=== PATIENT | male | born 1965 | race Caucasian/White ===

== ENCOUNTER 2018-09-17 07:15 | Day surgery (SDC) | payer BC ==
[~2018-09-17] VITALS: Ht 172.7 cm; Wt 83.6 kg
[~2018-09-17 07:15] MED LIST: ARIP10 PO; ASPI81CH PO; ATOR40TA PO; Augmentin 875-1 EACH PO; BUPR150ER PO; BUTALB-ACETAMI1 EACH PO; Budeprion Xl300 MG; Budeprion Xl300 MG PO; CITALOPRAM PO; FLUVIRIN 245 MCG/0.8 IM; Fluoxetine HCl20 M1 PO; GABA300 PO; HYDACE10B PO; HYDHCL25 PO; Humalog100 UNIT/1; Humalog100 UNIT/1 SC; INS70/30PN SC; INSULIN PUMP; LEVEMIR FL100 UNIT/1 SC; LISI5 PO; METO10 PO; METO25ER PO; Omeprazole20 M1; One Touch Ultr1 EACH IN; PANT40 PO; PREG25; Percocet 5-3251 EACH PO; TRAZ50 PO; VITAMIN D5000 UNIT PO; ZOLP10 PO; [UNRECOGNIZED DRUG - OTHER] MC
--- NOTE | 2018-09-17 11:02 | NUR ---
SUMMARY: PT HAD UNCOMPLICATED COURSE IN RECOVERY STATUS POST ANGIO. TOLERATING SOLID FOODS. NO PAIN OR DISCOMFORT. NO EPISODES OF BLEEDING OR SWELLING TO RIGHT HAND. CMS REMAINED INTACT TO HAND WITH BRISK CAP REFILL. TR BAND DEFLATED PER POLICY - PT TOLERATED WELL. REVIEWED DISCHARGE INSTRUCTIONS WITH PATIENT WHO VERBALIZED UNDERSTANDING OF ALL AND IS ABLE TO REPEAT BACK PERTINENT POINTS OF INSTRUCTIONS. IV D/C TIP INTACT. FAMILY HERE TO DRIVE PATIENT HOME.
== END 2018-09-17 11:15 | disposition home or self-care (01) ==
LOC: MHTC 07:15 → ORSCMMR 07:19 → MHTC 11:15
DX: I25.10 Atherosclerotic heart disease of native coronary artery without angina pectoris (principal); E10.9 Type 1 diabetes mellitus without complications; I10 Essential (primary) hypertension; F32.9 Major depressive disorder, single episode, unspecified; F41.9 Anxiety disorder, unspecified; F17.210 Nicotine dependence, cigarettes, uncomplicated; Z79.899 Other long term (current) drug therapy; Z79.82 Long term (current) use of aspirin; Z88.8 Allergy status to other drugs, medicaments and biological substances
CPT/HCPCS: 93454; 99152; C1769; C1894; J1644; J2250; J3010; J7030; Q9967

== ENCOUNTER 2019-06-07 08:45 | Day surgery (SDC) | payer BC ==
[~2019-06-07] VITALS: Ht 175.3 cm; Wt 83.3 kg
[~2019-06-07 08:45] MED LIST changes: +GABAPENTIN600 MG PO
== END 2019-06-07 10:16 | disposition home or self-care (01) ==
LOC: ORSCSDS 08:45
PROVIDERS: Internal Medicine Gastroenterology
PROC: 0DBH8ZX Excision of Cecum, Via Natural or Artificial Opening Endoscopic, Diagnostic (ICD-10-PCS; principal; 2019-06-07 10:00)
PROC: 0DBM8ZX Excision of Descending Colon, Via Natural or Artificial Opening Endoscopic, Diagnostic (ICD-10-PCS; principal; 2019-06-07 10:00)
DX: Z12.11 Encounter for screening for malignant neoplasm of colon (principal); D12.0 Benign neoplasm of cecum; D12.4 Benign neoplasm of descending colon; F41.8 Other specified anxiety disorders; E10.8 Type 1 diabetes mellitus with unspecified complications; Z96.41 Presence of insulin pump (external) (internal); F17.210 Nicotine dependence, cigarettes, uncomplicated; Z79.82 Long term (current) use of aspirin; Z79.4 Long term (current) use of insulin; Z79.899 Other long term (current) drug therapy
CPT/HCPCS: 82947; 88305; J2704; J7120

== ENCOUNTER 2021-05-30 11:45 | Day surgery (SDC) | payer BC ==
[~2021-05-30] VITALS: Ht 175.3 cm; Wt 92.6 kg
== END 2021-05-30 14:06 | disposition home or self-care (01) ==
LOC: ORSCSDS 11:45
PROVIDERS: Student in an Organized Health Care Education/Training Program
PROC: 0DB48ZX Excision of Esophagogastric Junction, Via Natural or Artificial Opening Endoscopic, Diagnostic (ICD-10-PCS; principal; 2021-05-30 13:00)
PROC: 0DB98ZX Excision of Duodenum, Via Natural or Artificial Opening Endoscopic, Diagnostic (ICD-10-PCS; principal; 2021-05-30 13:00)
DX: K76.0 Fatty (change of) liver, not elsewhere classified (principal); K90.0 Celiac disease; I10 Essential (primary) hypertension; E10.8 Type 1 diabetes mellitus with unspecified complications; Z96.41 Presence of insulin pump (external) (internal); D64.9 Anemia, unspecified; F41.8 Other specified anxiety disorders; Z87.891 Personal history of nicotine dependence; Z79.82 Long term (current) use of aspirin; Z79.4 Long term (current) use of insulin; Z79.899 Other long term (current) drug therapy
CPT/HCPCS: 82947; 88305; J0461; J2405; J2704; J7120

== ENCOUNTER 2022-07-09 17:07 | Inpatient (IN) | payer BC ==
[~2022-07-09] VITALS: Ht 172.7 cm; Wt 93.4 kg
[~2022-07-09 17:07] MED LIST changes: -ACET325 PO; -AZIT250 PO; -CEFP200 PO; -TAMIFLU7511 PO; -VISBIOME 112.51 EACH PO; -Ventolin/Prove6.7 GM INH
[2022-07-09] MEDS ORDERED: Ventolin/Prove6.7 GM INH (23:17)
[2022-07-09] MEDS ORDERED: TAMIFLU7511 PO (23:17)
[2022-07-10 01:26] LABS: Hemoglobin 12.8 g/dL (13.5-17.5); Mean Corpuscular HGB 29.8 pg (26.0-34.0); Mean Corpuscular HGB Conc 33.7 g/dL (31.5-36.5); Mean Corpuscular Volume 88 fL (80-100); Mean Platelet Volume 10.5 fL (9.1-12.4); Platelet Count 278 K/mm3 (150-400); RDW Coefficient Variation 13.1 % (11.7-14.2); RDW Standard Deviation 42.3 fL (35.1-46.3); White Blood Cell Count 16.81 K/mm3 (4.00-11.30)
[2022-07-10 02:04] LABS: BAND PERCENT MAN 27 % (0-8); BASOPHILS ABSOLUTE MAN 0.16 K/mm3 (0.00-0.23); BASOPHILS PERCENT MAN 1 % (0-2); EOSINOPHILS PERCENT MAN 0 % (0-6); LYMPHOCYTES ABSOLUTE MAN 1.17 K/mm3 (0.84-5.20); LYMPHOCYTES PERCENT MAN 7 % (21-46); METAMYELOCYTE PERCENT MAN 3 % (0-0); MONOCYTES ABSOLUTE MAN 1.51 K/mm3 (0.16-1.47); MONOCYTES PERCENT MAN 9 % (4-13); NEUTROPHILS ABSOLUTE MAN 13.44 K/mm3 (1.96-9.15); SEG NEUTROPHILS PERCENT MAN 53 % (41-73); TOTAL CELLS COUNTED 100
[2022-07-10 02:52] LABS: Albumin, Blood 2.4 g/dL (3.4-5.0); Albumin/Globulin Ratio 0.7 (0.8-1.8); Bilirubin, Total 0.5 mg/dL (0.1-1.0); Bun/Creatinine Ratio 18.2 (12.0-20.0); Calcium, Blood 7.9 mg/dL (8.5-10.1); Creatinine, Blood 1.43 mg/dL (0.60-1.20); Globulin, Blood 3.5 g/dL (2.2-4.0); Potassium, Blood 4.4 mmol/L (3.5-5.5); Total Protein, Blood 5.9 g/dL (6.4-8.2)
--- NOTE | 2022-07-10 03:18 | NUR ---
SHIFT SUMMARY NOC ADMIT FROM ED FOR SEPSIS SECONDARY FROM LLL PNA. PT IS A/O X 4. INDEPENDENT IN ROOM ON RA WITH PRN O2 WHEN FEELING SOB. PT HAD ONE EPISODE OF ANXIETY ATTACK AND HAD SOB. 1L/NC O2 WAS APPLIED WELL ONE TIME DOSE OF ATIVAN WHICH RELIEVED PT ANXIETY AND SOB. PT IS ON TELE RUNNING SINUS TACH @ 105. PT HAS INSULIN PUMP LLQ THAT IS NOT GOING TO BE USED WHILE ADMITTED TO HOSPITAL. AC/HS CBG MONITORING AND HUMALOG INSULIN COVERAGE ARE IN PLACE. PT IS TAKING ROCEPHIN AND AZITHROMYCIN FOR PNA. PT HAD LACTIC ACID OF 2.9 PRIOR TO COMING FROM ED. AWAITING AM LABS. PT IS CURRENTLY RESTING WITH BED IN LOWEST POSITION, AND CALL LIGHT WITHIN REACH. WCTM.
--- NOTE | 2022-07-10 16:18 | NUR ---
PT AAOX4. CALM AND APPROPRIATE AFTER HIS INSULIN WAS INCREASED PER HIS REQUEST. PT DID STATE, "YOU GUYS ARE GOING TO KILL ME" WHEN HIS BG WAS 412 FOR LUNCH. CALLS APPROPRIATELY. INDEPENDENT IN ROOM. STEADY ON HIS FEET.
--- NOTE | 2022-07-10 22:16 | NUR ---
RN NOTE--HS BLOOD SUGAR 317.
--- NOTE | 2022-07-11 04:02 | NUR ---
NURSE NOTE--PHYSICIAN CONTACT CRITICAL LAB CHARGE NURSE NOTIFIED OF GRAM POSITVE BLOOD CULTURES IN ONE SAMPLE; PER LAB IF THE GRAM POS IS VALID AND NOT CONTAMINATION, CURRENT ABOX FOR PT WILL NOT COVER BACTERIA. THIS RN CALLED BREAKER BOSS/DR QUINTEROS TO NOTIFY OF RESULTS. NO NEW ORDER AT THIS TIME. WILL PASS INFO ON TO DAY SHIFT.
--- NOTE | 2022-07-11 06:30 | NUR ---
UKE DRIVER SUMMARY CRITICAL LAB F/GRAM POS BLOOD CULTURE; SEE NURSE NOTE. PT C/O HEADACHE THAT IS WORSENING; MED W/TYLENOL PER EMAR. NO ACUTE EVENTS OVER NIGHT. PT ABLE TO MAKE NEEDS KNOWN. CALL LIGHT ACCESSIBLE.
[2022-07-11 09:59] LABS: BASOPHILS ABSOLUTE AUTO 0.07 K/mm3 (0.00-0.23); BASOPHILS PERCENT AUTO 0 % (0-2); EOSINOPHILS ABSOLUTE AUTO 0.42 K/mm3 (0.00-0.68); EOSINOPHILS PERCENT AUTO 3 % (0-6); Hemoglobin 12.5 g/dL (13.5-17.5); IMMATURE GRAN ABSOLUTE AUTO 0.17 K/mm3 (0.00-0.10); IMMATURE GRAN PERCENT AUTO 1 % (0-1); LYMPHOCYTES ABSOLUTE AUTO 2.19 K/mm3 (0.84-5.20); LYMPHOCYTES PERCENT AUTO 14 % (21-46); MONOCYTES ABSOLUTE AUTO 1.13 K/mm3 (0.16-1.47); MONOCYTES PERCENT AUTO 7 % (4-13); Mean Corpuscular HGB 29.9 pg (26.0-34.0); Mean Corpuscular HGB Conc 34.7 g/dL (31.5-36.5); Mean Corpuscular Volume 86 fL (80-100); Mean Platelet Volume 11.3 fL (9.1-12.4); NEUTROPHILS ABSOLUTE AUTO 11.71 K/mm3 (1.96-9.15); NEUTROPHILS PERCENT AUTO 75 % (41-73); Platelet Count 227 K/mm3 (150-400); RDW Standard Deviation 41.2 fL (35.1-46.3); Red Blood Cell Count 4.18 M/mm3 (4.30-5.90); White Blood Cell Count 15.69 K/mm3 (4.00-11.30)
[2022-07-11 10:45] LABS: Bun/Creatinine Ratio 23.3 (12.0-20.0); Calcium, Blood 8.5 mg/dL (8.5-10.1); Creatinine, Blood 1.03 mg/dL (0.60-1.20); Potassium, Blood 4.1 mmol/L (3.5-5.5)
[2022-07-11] MEDS ORDERED: ACET325 PO (15:02)
[2022-07-11] MEDS ORDERED: VISBIOME 112.51 EACH PO (15:03)
[2022-07-11] MEDS ORDERED: AZIT250 PO (15:04)
[2022-07-11] MEDS ORDERED: CEFP200 PO (15:05)
--- NOTE | 2022-07-11 19:57 | NUR ---
SHIFT SUMMARY PTN D/C'D AT 1715 WITH WC ESCORT BY KOREY ARORA TO EXIT WHERE PTN HAD OWN VEHICLE TO DRIVE HOME. NO UNTOWARD EVENTS THIS SHIFT. BLOOD SUGARS 209 AND 331 LUNCH AND DINNER, AND COVERED VIA EMAR. TELEMETRY STRIP SHOWED SINUS RHYTHM WITH HR 78. D/C PAPERWORK REVIEWED WITH THE PTN PRIOR TO D/C.
== END 2022-07-11 17:04 | disposition home or self-care (01) | DRG 871 ==
LOC: ER 17:07 → MEDS 17:08
PROVIDERS: Internal Medicine; ADMIT Internal Medicine
DX: A41.50 Gram-negative sepsis, unspecified (principal); G93.41 Metabolic encephalopathy; J15.6 Pneumonia due to other Gram-negative bacteria; E87.20 Acidosis, unspecified; J20.9 Acute bronchitis, unspecified; R65.20 Severe sepsis without septic shock; F32.A Depression, unspecified; I10 Essential (primary) hypertension; E10.65 Type 1 diabetes mellitus with hyperglycemia; G56.00 Carpal tunnel syndrome, unspecified upper limb; F17.210 Nicotine dependence, cigarettes, uncomplicated; N28.9 Disorder of kidney and ureter, unspecified; B96.20 Unspecified Escherichia coli [E. coli] as the cause of diseases classified elsewhere; Z96.611 Presence of right artificial shoulder joint; Z96.651 Presence of right artificial knee joint; Z96.612 Presence of left artificial shoulder joint; Z88.8 Allergy status to other drugs, medicaments and biological substances; Z79.4 Long term (current) use of insulin; Z23 Encounter for immunization; Z79.811 Long term (current) use of aromatase inhibitors; Z79.82 Long term (current) use of aspirin; Z79.02 Long term (current) use of antithrombotics/antiplatelets; Z79.899 Other long term (current) drug therapy; Z98.890 Other specified postprocedural states; Z79.51 Long term (current) use of inhaled steroids
CPT/HCPCS: 36415; 80048; 80053; 82947; 83605; 83880; 85025; 87040; 87070; 87077; 87186; 87205; 90686; 93005; 93010; 96361; 96365; 96366; 96372; 96375; 99285-25; A9270; G0008; G0378; J0456; J0696; J1650; J1815; J7030; J7050

== ENCOUNTER → 2022-07-09 | Outpatient (CLI) | payer BC ==
[~2022-07-09] MED LIST changes: +ACET325 PO; +AZIT250 PO; +CEFP200 PO; +HUMALOG KW100 UNIT/1 SC; -Humalog100 UNIT/1 SC; +TAMIFLU7511 PO; +VISBIOME 112.51 EACH PO; +Ventolin/Prove6.7 GM INH
[2022-07-09 14:35] LABS: Hematocrit 41.3 % (37.0-53.0); Hemoglobin 14.3 g/dL (13.5-17.5); Mean Corpuscular HGB Conc 34.6 g/dL (31.5-36.5); Mean Corpuscular Volume 87 fL (80-100); Mean Platelet Volume 10.1 fL (9.1-12.4); Platelet Count 318 K/mm3 (150-400); RDW Coefficient Variation 12.9 % (11.7-14.2); RDW Standard Deviation 40.7 fL (35.1-46.3); Red Blood Cell Count 4.76 M/mm3 (4.30-5.90); White Blood Cell Count 12.07 K/mm3 (4.00-11.30)
[2022-07-09 14:39] LABS: Albumin, Blood 2.8 g/dL (3.4-5.0); Albumin/Globulin Ratio 0.7 (0.8-1.8); Bilirubin, Total 1.1 mg/dL (0.1-1.0); Bun/Creatinine Ratio 12.5 (12.0-20.0); Calcium, Blood 8.8 mg/dL (8.5-10.1); Creatinine, Blood 1.44 mg/dL (0.60-1.20); Potassium, Blood 4.1 mmol/L (3.5-5.5); Total Protein, Blood 6.8 g/dL (6.4-8.2)
[2022-07-09 15:08] LABS: BAND PERCENT MAN 29 % (0-8); BASOPHILS PERCENT MAN 0 % (0-2); EOSINOPHILS PERCENT MAN 0 % (0-6); LYMPHOCYTES % ATYPICAL MANUAL 2 % (0-0); LYMPHOCYTES ABSOLUTE MAN 1.81 K/mm3 (0.84-5.20); LYMPHOCYTES PERCENT MAN 13 % (21-46); MONOCYTES PERCENT MAN 10 % (4-13); NEUTROPHILS ABSOLUTE MAN 9.05 K/mm3 (1.96-9.15); SEG NEUTROPHILS PERCENT MAN 46 % (41-73); TOTAL CELLS COUNTED 100
== END | disposition home or self-care (01) ==
LOC: LAB SHORT 14:23 → LAB 14:23
PROVIDERS: Physician Assistant
DX: R41.0 Disorientation, unspecified (principal); R79.81 Abnormal blood-gas level
CPT/HCPCS: 80053; 84484; 85025; 85379

== ENCOUNTER 2025-03-24 00:40 | Day surgery (SDC) | payer BC ==
[~2025-03-24 00:40] MED LIST changes: +ACET325 PO; +AZIT250 PO; +CEFP200 PO; +TAMIFLU7511 PO; +VISBIOME 112.51 EACH PO; +Ventolin/Prove6.7 GM INH
== END 2025-03-24 23:00 | disposition home or self-care (01) ==
LOC: WOUND 00:40
DX: E11.622 Type 2 diabetes mellitus with other skin ulcer (principal); L97.822 Non-pressure chronic ulcer of other part of left lower leg with fat layer exposed; L97.812 Non-pressure chronic ulcer of other part of right lower leg with fat layer exposed; E11.40 Type 2 diabetes mellitus with diabetic neuropathy, unspecified; E11.51 Type 2 diabetes mellitus with diabetic peripheral angiopathy without gangrene
CPT/HCPCS: A6213; G0463

== ENCOUNTER 2025-03-29 01:31 | Day surgery (SDC) | payer BC | END 2025-03-29 23:00 | disposition home or self-care (01) | LOC: WOUND 01:31 | DX: E11.9 Type 2 diabetes mellitus without complications (principal); Z86.31 Personal history of diabetic foot ulcer | CPT/HCPCS: G0463 ==